=== PATIENT | female | born 1945 | race Caucasian/White ===

== ENCOUNTER 2017-06-11 21:33 | Emergency (ER) | payer BC ==
[~2017-06-11] VITALS: Ht 160 cm; Wt 76.7 kg
[~2017-06-11 21:33] MED LIST: BIOTIN1000 MICRO PO; BLACK CHERRY PO; CIPRO500 MG PO; CLINDAMYCIN HC300 MG PO; ERYTHROMYCIN O3.5 GM RIGHT EYE; FLAGYL500 MG PO; NEXIUM40 MG PO; NORCO 5/3251 TABLET PO; TRAZODONE HCL50 MG PO; VITAMIN D31000 UNIT PO; ZOFRAN ODT4 MG PO
[2017-06-11] MEDS ORDERED: ROBITUSSIN AC,T10 ML PO (23:08)
[2017-06-11] MEDS ORDERED: VENTOLIN HFA18 GM IH (23:08)
[2017-06-12 00:41] VITALS: BP 139/75
== END 2017-06-12 00:42 | disposition home or self-care (01) ==
LOC: EME 21:33 → EXP 21:33
PROVIDERS: Physician Assistant
DX: J10.1 Influenza due to other identified influenza virus with other respiratory manifestations (principal)
CPT/HCPCS: 71020; 87502; 87651 90; 94640; 99281; 99284